=== PATIENT | male | born 2000 ===

== ENCOUNTER 2023-08-06 11:38 | Emergency (ER) | payer OTHER, SELFPAY ==
[2023-08-06 11:42] VITALS: BP 123/69; PULSE 88; RESP 18; TEMP 36.7; O2SAT 100; BMI 19.5
[2023-08-06 11:53] VITALS: BP 128/79; PULSE 82; O2SAT 100
[2023-08-06 12:00] VITALS: BP 128/73; PULSE 83; O2SAT 100
--- NOTE | 2023-08-06 12:00 | ED.GIBLEED ---
HPI - GI Bleed General Chief complaint: GI Bleed Stated complaint: rectal bleeding Time Seen by Provider: 08/06/23 11:46 Source: patient Mode of arrival: Ambulatory History of Present Illness HPI Narrative: Patient is a 23-year-old otherwise healthy individual who is here for evaluation of approximately 2 weeks of bright red blood per rectum. He stated that he did have some left-sided abdominal pain last week but that has now resolved. He has had some loose stools but no diarrhea no constipation. No fevers. No vomiting. No urinary symptoms. No prior abdominal surgeries. Not on blood thinners. He states that it is bright red blood every time he has a bowel movement. Related Data Allergies Allergy/AdvReac Type Severity Reaction Status Date / Time No Known Drug Allergies Allergy Verified 08/06/23 11:42 Review of Systems Constitutional Constitutional: Reports system reviewed and no additional complaints, except as documented Gastrointestinal Gastrointestinal: Reports system reviewed and no additional complaints, except as documented Genitourinary Genitourinary: Reports system reviewed and no additional complaints, except as documented Musculoskeletal Musculoskeletal: Reports system reviewed and no additional complaints, except as documented Integumentary/Breasts Skin/Breast: Reports system reviewed and no additional complaints, except as documented Hematologic/Lymphatic On Anticoagulants: No Patient History Social History Smoking Status: Current every day smoker Smoking Status: Current every day smoker tobacco type: vaping alcohol intake frequency: holidays/special occasions only Substance Use Type: does not use Exam Initial Vital Signs Initial Vital Signs: Vital Signs Temperature 98.1 F 08/06/23 11:42 Pulse Rate 88 08/06/23 11:42 Respiratory Rate 18 08/06/23 11:42 Blood Pressure 123/69 08/06/23 11:42 Pulse Oximetry 100 08/06/23 11:42 Oxygen Delivery Method Room Air 08/06/23 11:42 Const General: cooperative, comfortable and No ill appearing [facility] Head: normal to inspection and normocephalic GI Inspection: normal to inspection Palpation: soft and No tender Rectal Exam: visual inspection normal, No fecal impaction, No fissure, No hemorrhoids, No lesions and No mass Skin General: no rashes or lesions noted Neuro General: patient alert, patient awake and moves all extremities Course Orders Ordered: ED Orders 08/06/23 12:27 Basic Metabolic Panel Stat Complete Blood Count AUTO DIFF Stat Vital Signs Vital signs: Vital Signs - 8 hr 08/06/23 11:42 Temperature 98.1 F Pulse Rate 88 Respiratory Rate 18 Blood Pressure 123/69 Pulse Oximetry 100 Oxygen Delivery Method Room Air MDM - GI Bleed Lab Data 08/06/23 12:27 08/06/23 12:27 Labs: Lab Results 08/06/23 Range/Units 12:27 WBC 6.1 (4.5-11.0) X10^3/uL RBC 4.71 (4.5-5.9) X10^6/uL Hgb 14.1 (13.5-17.5) g/dL Hct 42.0 (41-53) % MCV 89.3 (80-100) fL MCH 29.9 (26-34) PG MCHC 33.5 (30-36) % RDW 12.2 (11.6-14.8) % Plt Count 235 (150-400) X10^3/uL Neut % (Auto) 56.2 (50-75) % Lymph % (Auto) 30.8 (25-40) % [place] % (Auto) 9.5 (3-14) % Eos % (Auto) 2.8 (2-4) % Baso % (Auto) 0.7 (0-2) % Neut # (Auto) 3400 (2788-0573) /uL Lymph # (Auto) 1900 (9320-1567) /uL [place] # (Auto) 600 (0-900) /uL Eos # (Auto) 200 (0-450) /uL Baso # (Auto) 0 (0-100) /uL Sodium 142 (137-145) mmol/L Potassium 4.4 (3.4-5.1) mmol/L Chloride 107 (98-107) mmol/L Carbon Dioxide 30 (22-32) mmol/L BUN 12 (9-20) mg/dL Creatinine 0.81 (0.66-1.25) mg/dL Estimated GFR > 60 (>60) mL/min BUN/Creatinine Ratio 14.8 (6-22) Glucose 86 (70-100) mg/dL Calcium 9.8 (8.4-10.2) mg/dL MDM Narrative Medical decision making narrative: Patient has had bright red blood per rectum. No hemorrhoids felt on the exam. Has a benign exam. No abdominal tenderness. No fevers. Vital signs unremarkable. Blood counts unremarkable. Will discharge patient home with instructions to follow-up with general surgery to discuss further evaluation. He was given return precautions. He expressed understanding and agreement. Discharge Plan Departure Patient Disposition: Home Clinical Impression: Bright red rectal bleeding Instructions: DI for Rectal Bleeding Activity Restrictions/Additional Instructions: Recommend that you contact the General surgery Department of the number provided below for a follow-up. Return to the emergency department for new symptoms Referrals: Luis Camacho MD [Physician] - Provider,Ivan VIRGEN [Primary Care Provider] - Stand Alone Forms: Patient Portal/API
[2023-08-06 12:30] VITALS: BP 116/65; PULSE 78; O2SAT 100
[2023-08-06 12:33] LABS: Add Manual Diff / Slide Review NO; Basophils Absolute Auto 0 /uL (0-100); Basophils Percent Auto 0.7 % (0-2); Eosinophils Absolute Auto 200 /uL (0-450); Eosinophils Percent Auto 2.8 % (2-4); Hemoglobin 14.1 g/dL (13.5-17.5); Lymphocytes Absolute Auto 1900 /uL (1100-4500); Lymphocytes Percent Auto 30.8 % (25-40); Mean Corpuscular HGB Conc 33.5 % (30-36); Mean Corpuscular Hemoglobin 29.9 PG (26-34); Mean Corpuscular Volume 89.3 fL (80-100); Monocytes Absolute Auto 600 /uL (0-900); Monocytes Percent Auto 9.5 % (3-14); Neutrophils Absolute Auto 3400 /uL (1500-7000); Neutrophils Percent Auto 56.2 % (50-75); Platelet Count 235 X10^3/uL (150-400); Red Blood Cell Count 4.71 X10^6/uL (4.5-5.9); Red Cell Distribution Width 12.2 % (11.6-14.8); White Blood Cell Count 6.1 X10^3/uL (4.5-11.0)
[2023-08-06 12:50] LABS: HEMOLYSIS < 15 (0-50); Potassium 4.4 mmol/L (3.4-5.1)
[2023-08-06 12:51] LABS: BUN Creatinine Ratio 14.8 (6-22); Blood Urea Nitrogen 12 mg/dL (9-20); Calcium 9.8 mg/dL (8.4-10.2); Carbon Dioxide 30 mmol/L (22-32); Chloride 107 mmol/L (98-107); Estimated Glomerular Filt Rate > 60 mL/min (>60); Glucose 86 mg/dL (70-100); Sodium 142 mmol/L (137-145)
[2023-08-06 13:00] VITALS: BP 116/63; PULSE 83; O2SAT 100
== END 2023-08-06 13:09 | disposition home or self-care (01) ==
PROVIDERS: Emergency Provider Emergency Medicine
DX: K62.5 Hemorrhage of anus and rectum (principal)
CPT/HCPCS: 80048; 85025; 99281; 99283

== ENCOUNTER 2023-08-18 06:39 | Day surgery (SDC) | payer OTHER, SELFPAY ==
[2023-08-18 07:16] VITALS: BP 122/66; PULSE 66; RESP 18; TEMP 36.4; O2SAT 100
[2023-08-18] MEDS: LACTATED RINGERS 1,000 ML 42 ML IV (07:31)
--- NOTE | 2023-08-18 07:41 | PM.PREOP ---
Pre-operative Note COVID-19 COVID-19 status: Not tested Interval Note History & Physical reviewed/Exam performed by Physician: Yes Changes to H&P: No ASA Class (for procedural sedation): II
--- NOTE | 2023-08-18 08:07 | PM.OP.COLON ---
Operative Date/Time/Diagnoses Date of procedure: 08/18/23 Time of procedure: 08:07 Pre-op diagnosis: Rectal bleeding Post-op diagnosis: same Procedure & Clinicians Study performed: Colonoscopy Same procedure as scheduled: Yes Surgeon: Azael Estrada Procedure Notes Procedure in detail: Surgeon: Azael Estrada MD Anesthesia: Carmine Mera DO Procedure: The patient was brought to the endoscopy suite, placed in left lateral decubitus position. The patient was connected to monitoring devices. A time-out was performed. Sedation was administered. Once the patient was adequately sedated, a digital rectal exam was performed and was normal. The scope was then inserted and advanced to the cecum where the appendiceal orifice was identified and photographed. The terminal ileum was intubated and no abnormality was seen. The scope was then slowly withdrawn over greater than 6 minutes. The mucosa was thoroughly inspected. No abnormalities were seen. The scope was retroflexed in the rectum. There were some moderate internal hemorrhoids noted. The scope was straightened and removed. The patient was awakened and brought to recovery. Scope withdrawal time: 10 minutes Sedation time: 16 minutes EBL: 0 Findings: Internal hemorrhoid Impression: Internal hemorrhoids and most likely cause for rectal bleeding Post-procedure Disposition: PACU
[2023-08-18 08:10] VITALS: BP 97/68; PULSE 84; RESP 22; TEMP 36.2; O2SAT 99
[2023-08-18 08:15] VITALS: BP 82/52; PULSE 89; RESP 12; O2SAT 99
[2023-08-18 08:20] VITALS: BP 108/81; PULSE 75; RESP 15; TEMP 36.1; O2SAT 100
[2023-08-18 08:27] VITALS: BP 105/67; PULSE 77; RESP 14; TEMP 36.1; O2SAT 99
== END 2023-08-18 08:33 | disposition home or self-care (01) ==
PROVIDERS: Referring Provider Surgery; Visit Provider Surgery
PROC: 0DJD8ZZ Inspection of Lower Intestinal Tract, Via Natural or Artificial Opening Endoscopic (ICD-10-PCS; CPT 45378; principal; 2023-08-18 07:45)
DX: K62.5 Hemorrhage of anus and rectum (principal); K64.8 Other hemorrhoids
CPT/HCPCS: 45378; J2704